=== PATIENT | female | born 1990 | race Caucasian/White ===

== ENCOUNTER → 2018-03-29 | Outpatient (CLI) | payer OTHER ==
[2018-03-29 17:35] LABS: BASO % 0.4 % (0.0-1.0); EOS # 0.1 10^3/uL (0.0-0.50); HEMATOCRIT 34.5 % (36.0-47.0); HEMOGLOBIN 11.6 g/dl (12.0-15.5); IMMATURE GRANULOCYTE % 0.3 % (0-3.0); LYMPH # 1.7 10^3/uL (1.5-6.5); LYMPH % 23.8 % (24.0-44.0); MEAN CORPUSCULAR HGB CONC 33.6 g/dl (32.0-36.5); MEAN CORPUSCULAR VOLUME 92.2 fl (80.0-96.0); MONO # 0.6 10^3/uL (0.0-0.8); MONO % 8.4 % (0.0-5.0); NEUTROPHILS # 4.8 10^3/uL (1.8-7.7); NEUTROPHILS % 66.1 % (36.0-66.0); PLATELET COUNT, AUTOMATED 222 10^3/uL (150-450); RED BLOOD COUNT 3.74 10^6/uL (4.00-5.40); RED CELL DISTRIBUTION WIDTH 12.2 % (11.5-14.5); WHITE BLOOD COUNT 7.2 10^3/uL (4.0-10.0)
[2018-03-29 18:29] LABS: ALBUMIN/GLOBULIN RATIO 0.79 (1.00-1.93); ALKALINE PHOSPHATASE 62 U/L (45-117); ALT/SGPT 41 U/L (12-78); ANION GAP 9 MEQ/L (8-16); AST/SGOT 24 U/L (7-37); BILIRUBIN,TOTAL 0.2 MG/DL (0.2-1.0); BLOOD UREA NITROGEN 12 MG/DL (7-18); CALCIUM LEVEL 8.7 MG/DL (8.5-10.1); CARBON DIOXIDE LEVEL 24 MEQ/L (21-32); CHLORIDE LEVEL 106 MEQ/L (98-107); CREATININE FOR GFR 0.38 MG/DL (0.55-1.30); GLOMERULAR FILTRATION RATE > 60.0 (>60); GLUCOSE CHALLENGE TEST 1 HOUR 113 MG/DL (LESS THAN 140); GLUCOSE, FASTING 113 MG/DL (70-100); POTASSIUM SERUM 4.1 MEQ/L (3.5-5.1); SODIUM LEVEL 139 MEQ/L (136-145); TOTAL PROTEIN 6.8 GM/DL (6.4-8.2)
[2018-03-29 20:24] LABS: CHLAMYDIA DNA AMPLIFICATION NEGATIVE (NEGATIVE)
[2018-04-01 09:16] LABS: GC DNA AMPLIFICATION NEGATIVE (NEGATIVE)
[2018-04-01 11:21] LABS: TYPE AND SCREEN PRENATAL1 1 1
[2018-04-01 12:14] LABS: RUBELLA IgG QUALITATIVE IMMUNE (IMMUNE)
[2018-04-01 12:23] LABS: HEPATITIS B SURFACE ANTIBODY POSITIVE (POSITIVE)
[2018-04-01 12:27] LABS: HBsAg Prenatal NEGATIVE (NEGATIVE)
[2018-04-01 12:44] LABS: HIV 1&2 SCREEN CENTAUR NEGATIVE (NEGATIVE)
[2018-04-01 13:16] LABS: HEPATITIS C VIRUS ABY INDEX > 11.0 INDEX (<0.8)
[2018-04-04 00:11] LABS: ALPHA 2-MACROGLOBULIN 214 mg/dL (110-276); ALT 35 IU/L (0-40); APOLIPOPROTEIN A-1 185 mg/dL (116-209); FIBROSIS SCORE 0.07 (0.00-0.21); GGT 5 IU/L (0-60); HAPTOGLOBIN <10 mg/dL (34-200); HEPATITIS A IgG TOTAL Negative (Negative); HEPATITIS B CORE ANTIBODY IGG Negative (Negative); HEPATITIS C QUANTITATION 2790 IU/mL (.); HEPATITIS C VIRUS GENOTYPE 3 (.); NECROINFLAM SCORE 0.14 (0.00-0.17); NECROINFLAMM GRADE A0-No activity (.); TOTAL BILIRUBIN 0.2 mg/dL (0.0-1.2)
[2018-04-04 08:06] LABS: HCV RNA NAA QUALITATIVE Positive (Negative)
== END ==
LOC: M LAB 15:00
DX: Z34.83 Encounter for supervision of other normal pregnancy, third trimester (principal); Z3A.31 31 weeks gestation of pregnancy
CPT/HCPCS: 84460

== ENCOUNTER 2018-04-28 09:03 | Emergency (ER) | payer OTHER, MEDICAID | END 2018-04-28 11:40 | disposition home or self-care (01) | LOC: M ED 09:03 | DX: O99.89 Other specified diseases and conditions complicating pregnancy, childbirth and the puerperium (principal); Z76.0 Encounter for issue of repeat prescription; Z79.899 Other long term (current) drug therapy; Z91.040 Latex allergy status; Z3A.34 34 weeks gestation of pregnancy | CPT/HCPCS: 99283 ==

== ENCOUNTER → 2018-05-01 | Outpatient (CLI) | payer OTHER ==
[2018-05-01 18:26] LABS: BASO % 0.3 % (0.0-1.0); EOS # 0.1 10^3/uL (0.0-0.50); HEMATOCRIT 35.2 % (36.0-47.0); IMMATURE GRANULOCYTE % 0.3 % (0-3.0); LYMPH # 1.9 10^3/uL (1.5-6.5); LYMPH % 27.2 % (24.0-44.0); MEAN CORPUSCULAR HGB CONC 34.1 g/dl (32.0-36.5); MONO # 0.6 10^3/uL (0.0-0.8); MONO % 9.3 % (0.0-5.0); NEUTROPHILS # 4.2 10^3/uL (1.8-7.7); NEUTROPHILS % 61.9 % (36.0-66.0); PLATELET COUNT, AUTOMATED 171 10^3/uL (150-450); RED BLOOD COUNT 3.87 10^6/uL (4.00-5.40); RED CELL DISTRIBUTION WIDTH 12.1 % (11.5-14.5); WHITE BLOOD COUNT 6.8 10^3/uL (4.0-10.0)
[2018-05-01 18:52] LABS: ALBUMIN 2.8 GM/DL (3.2-5.2); ALBUMIN/GLOBULIN RATIO 0.72 (1.00-1.93); ALKALINE PHOSPHATASE 95 U/L (45-117); ALT/SGPT 51 U/L (12-78); AST/SGOT 32 U/L (7-37); BILIRUBIN,DIRECT < 0.1 MG/DL (0.0-0.2); BILIRUBIN,TOTAL 0.3 MG/DL (0.2-1.0); TOTAL PROTEIN 6.7 GM/DL (6.4-8.2)
== END ==
LOC: M LAB 17:11
DX: B19.20 Unspecified viral hepatitis C without hepatic coma (principal)
CPT/HCPCS: 80076

== ENCOUNTER → 2018-05-17 | Outpatient (REF) | payer OTHER | LOC: M LAB REF 16:58 | DX: Z34.83 Encounter for supervision of other normal pregnancy, third trimester (principal) ==

== ENCOUNTER 2018-05-31 18:43 | Outpatient (CLI) | payer OTHER ==
[2018-05-31] MEDS: metroNIDAZOLE (FLAGYL) 500 MG TAB PO (19:52)
== END 2018-05-31 19:55 | disposition home or self-care (01) ==
LOC: M LDO 18:43
DX: O34.63 Maternal care for abnormality of vagina, third trimester (principal); O23.593 Infection of other part of genital tract in pregnancy, third trimester; O47.1 False labor at or after 37 completed weeks of gestation; Z3A.39 39 weeks gestation of pregnancy
CPT/HCPCS: 59025

== ENCOUNTER 2018-06-09 15:05 | Inpatient (IN) | payer OTHER ==
[2018-06-09] MEDS: BUPRENORPHINE PO (20:05)
[2018-06-09 20:34] LABS: HEMATOCRIT 35.4 % (36.0-47.0); MEAN CORPUSCULAR HEMOGLOBIN 30.7 pg (27.0-33.0); MEAN CORPUSCULAR HGB CONC 33.9 g/dl (32.0-36.5); MEAN CORPUSCULAR VOLUME 90.5 fl (80.0-96.0); PLATELET COUNT, AUTOMATED 225 10^3/uL (150-450); RED BLOOD COUNT 3.91 10^6/uL (4.00-5.40); RED CELL DISTRIBUTION WIDTH 12.2 % (11.5-14.5); WHITE BLOOD COUNT 6.5 10^3/uL (4.0-10.0)
[2018-06-09] MEDS: miSOPROStol 50 MCG 1/2 TAB (S0191) PO (20:53)
[2018-06-09] MEDS: LR 1,000 ML IV (20:55)
[2018-06-09] MEDS: PENICILLIN G POTASSIUM IV 5 MU in D5W MINI-BAG PLUS 100 ML IV (21:08)
[2018-06-09 21:30] LABS: AMPHETAMINES URINE REFLEX NEGATIVE (NEGATIVE); BARBITURATES URINE REFLEX NEGATIVE (NEGATIVE); BENZODIAZEPINES URINE REFLEX NEGATIVE (NEGATIVE); CANNABINOIDS URINE REFLEX NEGATIVE (NEGATIVE); COCAINE METABOLITE URINE REFLE NEGATIVE (NEGATIVE); METHADONE URINE REFLEX NEGATIVE (NEGATIVE); OPIATES URINE REFLEX NEGATIVE (NEGATIVE); PHENCYCLIDINE URINE REFLEX NEGATIVE (NEGATIVE)
[2018-06-10] MEDS: OXYTOCIN DRIP 30 UNITS in APPROPRIATE DILUENT 1 EA IV (01:00)
[2018-06-10] MEDS: PENICILLIN G POTASSIUM IV 2.5 MU in APPROPRIATE DILUENT 1 EA IV ×3 (01:17→09:04)
[2018-06-10] MEDS: LR 1,000 ML IV ×3 (04:02→10:11)
[2018-06-10] MEDS ORDERED: FENTANYL 2MCG/ML ROPIVACAINE 0.2% IN 0.9% NACL 200ML IVBAG As Ordered (07:21)
[2018-06-10] MEDS: FENTANYL/ROPIVACAINE/NACL BAG 200 ML EPIDURAL (07:58)
[2018-06-10] MEDS: BUPRENORPHINE PO ×2 (08:07→19:56)
[2018-06-10] MEDS ORDERED: NALOXONE INJ 0.4 MG/1 ML VIAL (J2310) IV (08:30)
[2018-06-10] MEDS ORDERED: LACTATED RINGER'S 1000 ML IV (08:30)
[2018-06-10] MEDS ORDERED: ePHEDrine SULFATE 25 MG/5 ML(5MG/ML) SYRINGE IV (08:30)
[2018-06-10] MEDS ORDERED: REFRIGERATOR IV KEYS XX (08:30)
[2018-06-10] MEDS ORDERED: EPIDURAL/PCA KEYS XX (08:30)
[2018-06-10] MEDS ORDERED: ONDANSETRON 4MG/2ML VIAL (J2405) IV (08:30)
[2018-06-10] MEDS ORDERED: EPIDURAL COMMENT XX (08:30)
[2018-06-10] MEDS ORDERED: diphenhydrAMINE INJ 50MG/ML VIAL (J1200) IV (08:30)
[2018-06-10] MEDS: PRENATAL VITAMINS CHEWABLE TABLET PO (09:00)
[2018-06-10 11:57] LABS: CORD GAS ABE A -7.2; CORD GAS HCO3 A 22.7 MEQ/L; CORD GAS O2 SAT A 56.7 %; CORD GAS PCO2 A 64.3 mmHg; CORD GAS PH A 7.166 UNITS; CORD GAS PO2 A 32.3 mmHg; CORD GAS SBC A 17.7 MEQ/L; CORD GAS TCO2 A 24.7 MEQ/L
[2018-06-10 11:59] LABS: CORD GAS ABE V -9.7; CORD GAS HCO3 V 17.2 MEQ/L; CORD GAS O2 SAT V 51.2 %; CORD GAS PCO2 V 41.1 mmHg; CORD GAS PH V 7.239 UNITS; CORD GAS PO2 V 27.1 mmHg; CORD GAS SBC V 15.9 MEQ/L; CORD GAS TCO2 V 18.4 MEQ/L
[2018-06-10] MEDS ORDERED: ACETAMINOPHEN 500 MG TAB PO (12:30)
[2018-06-10] MEDS ORDERED: RHOGAM 300 MCG (1500 IU) INJ (J2790) IM (12:30)
[2018-06-10] MEDS ORDERED: MOM 30ML SUSPENSION UDC PO (12:30)
[2018-06-10] MEDS ORDERED: IBUPROFEN 800 MG TAB PO (12:30)
[2018-06-10] MEDS ORDERED: METHYLERGONOVINE MALEATE 0.2 MG TAB PO (12:30)
[2018-06-10] MEDS ORDERED: MEASLES,MUMPS,RUBELLA VACCINE INJ (MMR-II) (90707) SC (12:30)
[2018-06-10] MEDS ORDERED: DIBUCAINE 1% OINTMENT 30GM TOP (12:30)
[2018-06-10] MEDS: NICOTINE 14 MG/24 HR TRANSDERMAL TD (16:16)
[2018-06-10] MEDS: DOCUSATE SODIUM 100 MG CAP PO (21:00)
[2018-06-11] MEDS ORDERED: BUPRENORPHINE PO (06:00)
[2018-06-11] MEDS: DOCUSATE SODIUM 100 MG CAP PO ×2 (07:01→20:19)
[2018-06-11] MEDS: PRENATAL VITAMINS CHEWABLE TABLET PO (08:31)
[2018-06-11] MEDS: NICOTINE 14 MG/24 HR TRANSDERMAL TD (08:33)
[2018-06-11] MEDS: METAMUCIL (PSYLLIUM) PACKET PO ×2 (08:34→20:19)
[2018-06-11] MEDS: BUPRENORPHINE PO ×2 (20:18)
[2018-06-12] MEDS: BUPRENORPHINE PO (05:40)
[2018-06-12] MEDS: METAMUCIL (PSYLLIUM) PACKET PO (09:00)
[2018-06-12] MEDS: NICOTINE 14 MG/24 HR TRANSDERMAL TD (09:16)
[2018-06-12] MEDS: PRENATAL VITAMINS CHEWABLE TABLET PO (09:16)
[2018-06-12] MEDS: DOCUSATE SODIUM 100 MG CAP PO (09:16)
== END 2018-06-12 14:27 | disposition home or self-care (01) | DRG 560 ==
LOC: M LDO 15:05 → M OBS 06-10 14:15 → M LDI 19:10
PROVIDERS: Advanced Practice Midwife
PROC: 10E0XZZ Delivery of Products of Conception, External Approach (ICD-10-PCS; principal; 2018-06-10)
DX: O48.0 Post-term pregnancy (principal); O99.321 Drug use complicating pregnancy, first trimester; O99.322 Drug use complicating pregnancy, second trimester; Z37.0 Single live birth; Z3A.40 40 weeks gestation of pregnancy; O09.31 Supervision of pregnancy with insufficient antenatal care, first trimester; O09.32 Supervision of pregnancy with insufficient antenatal care, second trimester; F14.10 Cocaine abuse, uncomplicated; O99.820 Streptococcus B carrier state complicating pregnancy; O32.6XX0 Maternal care for compound presentation, not applicable or unspecified

== ENCOUNTER → 2018-07-25 | Outpatient (REF) | payer OTHER, MEDICAID ==
[~2018-07-25] MED LIST: COLA100C5 PO; IBUP-1114 PO; NICO14DI24 TD; PREN200C PO; SUBO4MIS SL
[2018-07-25 11:41] LABS: BASO % 0.5 % (0.0-1.0); EOS # 0.1 10^3/uL (0.0-0.50); EOS % 2.2 % (0.0-3.0); HEMATOCRIT 37.3 % (36.0-47.0); HEMOGLOBIN 12.5 g/dl (12.0-15.5); LYMPH # 1.9 10^3/uL (1.5-6.5); LYMPH % 29.8 % (24.0-44.0); MEAN CORPUSCULAR HEMOGLOBIN 30.3 pg (27.0-33.0); MEAN CORPUSCULAR HGB CONC 33.5 g/dl (32.0-36.5); MEAN CORPUSCULAR VOLUME 90.3 fl (80.0-96.0); MONO # 0.6 10^3/uL (0.0-0.8); NEUTROPHILS # 3.8 10^3/uL (1.8-7.7); NEUTROPHILS % 58.3 % (36.0-66.0); PLATELET COUNT, AUTOMATED 296 10^3/uL (150-450); RED BLOOD COUNT 4.13 10^6/uL (4.00-5.40); WHITE BLOOD COUNT 6.4 10^3/uL (4.0-10.0)
[2018-07-25 12:21] LABS: ALBUMIN 3.5 GM/DL (3.2-5.2); ALT/SGPT 197 U/L (12-78); BILIRUBIN,TOTAL 0.3 MG/DL (0.2-1.0); BLOOD UREA NITROGEN 12 MG/DL (7-18); CALCIUM LEVEL 9.5 MG/DL (8.5-10.1); CARBON DIOXIDE LEVEL 26 MEQ/L (21-32); CHLORIDE LEVEL 104 MEQ/L (98-107); CREATININE FOR GFR 0.45 MG/DL (0.55-1.30); GLOMERULAR FILTRATION RATE > 60.0 (>60); GLUCOSE, FASTING 87 MG/DL (70-100); POTASSIUM SERUM 4.7 MEQ/L (3.5-5.1); SODIUM LEVEL 141 MEQ/L (136-145); TOTAL PROTEIN 7.2 GM/DL (6.4-8.2)
[2018-07-30 15:26] LABS: HEPATITIS C QUANTITATION 643430 IU/mL (.)
== END ==
LOC: M SFHCPLAZ 10:45
PROVIDERS: ATTEND Internal Medicine Infectious Disease
DX: B18.2 Chronic viral hepatitis C (principal)

== ENCOUNTER → 2018-09-25 | Outpatient (REF) | payer OTHER | LOC: M LAB REF 17:45 | PROVIDERS: ATTEND Physician Assistant | DX: J02.9 Acute pharyngitis, unspecified (principal) ==

== ENCOUNTER → 2018-10-01 | Outpatient (REF) | payer OTHER | LOC: M LAB REF 14:49 | PROVIDERS: ATTEND Advanced Practice Midwife | DX: Z12.4 Encounter for screening for malignant neoplasm of cervix (principal); R87.612 Low grade squamous intraepithelial lesion on cytologic smear of cervix (LGSIL) ==

== ENCOUNTER → 2018-10-17 | Outpatient (REF) | payer OTHER ==
[2018-10-17 17:45] LABS: ALBUMIN 3.8 GM/DL (3.2-5.2); ALT/SGPT 32 U/L (12-78); BILIRUBIN,DIRECT < 0.1 MG/DL (0.0-0.2); BILIRUBIN,TOTAL 0.3 MG/DL (0.2-1.0); TOTAL PROTEIN 8.3 GM/DL (6.4-8.2)
== END ==
LOC: M SFHCPLAZ 13:18
PROVIDERS: ATTEND Internal Medicine Infectious Disease
DX: B18.2 Chronic viral hepatitis C (principal)

== ENCOUNTER → 2018-11-05 | Outpatient (REF) | payer OTHER | LOC: M LAB REF 13:23 | PROVIDERS: ATTEND Obstetrics & Gynecology | DX: R87.612 Low grade squamous intraepithelial lesion on cytologic smear of cervix (LGSIL) (principal) ==

== ENCOUNTER → 2019-02-18 | Outpatient (REF) | payer OTHER ==
[2019-02-18 16:43] LABS: ALBUMIN 3.5 GM/DL (3.2-5.2); ALT/SGPT 21 U/L (12-78); BILIRUBIN,DIRECT < 0.1 MG/DL (0.0-0.2); BILIRUBIN,TOTAL 0.3 MG/DL (0.2-1.0); TOTAL PROTEIN 7.3 GM/DL (6.4-8.2)
[2019-02-21 14:17] LABS: HEPATITIS C QUANTITATION HCV Not Detected IU/mL (.)
== END ==
LOC: M SFHCPLAZ 14:16
PROVIDERS: ATTEND Internal Medicine Infectious Disease
DX: B18.2 Chronic viral hepatitis C (principal)

== ENCOUNTER 2019-07-08 13:09 | Emergency (ER) | payer OTHER ==
[~2019-07-08] VITALS: Ht 162.6 cm; Wt 98.4 kg
[2019-07-08] MEDS ORDERED: NEXP1IMP SC (13:15)
[2019-07-08 13:57] LABS: BASO % 0.3 % (0.0-1.0); EOS % 0.1 % (0.0-3.0); HEMOGLOBIN 14.8 g/dl (12.0-15.5); LYMPH # 0.9 10^3/uL (1.5-5.0); LYMPH % 5.7 % (24.0-44.0); MEAN CORPUSCULAR HEMOGLOBIN 30.4 pg (27.0-33.0); MEAN CORPUSCULAR HGB CONC 33.6 g/dl (32.0-36.5); MEAN CORPUSCULAR VOLUME 90.3 fl (80.0-96.0); MONO # 0.8 10^3/uL (0.0-0.8); MONO % 5.1 % (0.0-5.0); NEUTROPHILS # 13.2 10^3/uL (1.5-8.5); NEUTROPHILS % 88.4 % (36.0-66.0); PLATELET COUNT, AUTOMATED 307 10^3/uL (150-450); RED BLOOD COUNT 4.87 10^6/uL (4.00-5.40)
[2019-07-08 14:24] LABS: ALBUMIN 3.8 GM/DL (3.2-5.2); ALT/SGPT 17 U/L (12-78); BILIRUBIN,DIRECT 0.2 MG/DL (0.0-0.2); BILIRUBIN,TOTAL 0.9 MG/DL (0.2-1.0); BLOOD UREA NITROGEN 10 MG/DL (7-18); CALCIUM LEVEL 8.9 MG/DL (8.5-10.1); CARBON DIOXIDE LEVEL 21 MEQ/L (21-32); CHLORIDE LEVEL 106 MEQ/L (98-107); CREATININE FOR GFR 0.56 MG/DL (0.55-1.30); GLOMERULAR FILTRATION RATE > 60.0 (>60); GLUCOSE, FASTING 87 MG/DL (70-100); HCG, SERUM QUANTITATIVE < 1.0 MIU/ML; LIPASE 46 U/L (73-393); POTASSIUM SERUM 4.2 MEQ/L (3.5-5.1); SODIUM LEVEL 137 MEQ/L (136-145); TOTAL PROTEIN 7.5 GM/DL (6.4-8.2)
[2019-07-08] MEDS ORDERED: NS 1,000 ML IV ONE (15:30)
[2019-07-08] MEDS ORDERED: ISOVUE-370 76% 100ML VIAL (Q9967) As Ordered ONE (15:34)
--- NOTE | 2019-07-08 16:02 | REP ---
Clinical: Abdominal pain. Technique: Axial contrast enhanced images from the lung bases to the pubic symphysis using 100 ml Isovue 370 intravenous contrast material with coronal and sagittal re-formations. Findings: Mucosal thickening and enhancement to the fluid-filled small bowel is consistent with enteritis. Small amount of free fluid in the pelvis noted. Differential diagnosis includes inflammatory bowel disease. The appendix and large bowel appears normal. No free air. No evidence for bowel obstruction. Liver, spleen, pancreas, gallbladder, bilateral adrenal glands and kidneys are normal. Small fat containing periumbilical hernia and supraumbilical hernia is noted. Pelvis demonstrates normal bladder and age-appropriate uterus/adnexa. Abdominal aorta and vasculature normal. Musculoskeletal structures are intact. Lung bases are clear. Impression: Infectious/inflammatory enteritis. Differential diagnosis includes inflammatory bowel disease. Normal appendix and colon. No evidence for bowel obstruction or perforation. Electronically Signed by Telly Jean MD 07/08/2019 03:53 P
[2019-07-08] MEDS ORDERED: FLAG500T PO (16:37)
[2019-07-08] MEDS ORDERED: CIPR-249 PO (16:37)
[2019-07-08] MEDS ORDERED: metroNIDAZOLE (FLAGYL) 500 MG TAB PO ONE (16:45)
[2019-07-08] MEDS ORDERED: CIPROFLOXACIN 500 MG TAB PO ONE (16:45)
[2019-07-08 16:46] VITALS: BP 118/67
== END 2019-07-08 16:48 | disposition home or self-care (01) ==
LOC: M ED 13:09
DX: K52.9 Noninfective gastroenteritis and colitis, unspecified (principal); F17.210 Nicotine dependence, cigarettes, uncomplicated; Z91.040 Latex allergy status; Z79.899 Other long term (current) drug therapy
CPT/HCPCS: 74177; 80048; 80076; 81001; 83690; 84702; 85025; 96360; 99284; Q9967

== ENCOUNTER → 2019-07-18 | Outpatient (REF) | payer OTHER, MEDICAID ==
[~2019-07-18] MED LIST changes: +CIPR-249 PO; +FLAG500T PO; +NEXP1IMP SC
[2019-07-18 12:00] LABS: BASO # 0.1 10^3/uL (0.0-0.2); BASO % 0.5 % (0.0-1.0); EOS # 0.1 10^3/uL (0.0-0.5); EOS % 1.1 % (0.0-3.0); HEMOGLOBIN 13.4 g/dl (12.0-15.5); LYMPH # 1.9 10^3/uL (1.5-5.0); LYMPH % 15.7 % (24.0-44.0); MEAN CORPUSCULAR HEMOGLOBIN 30.7 pg (27.0-33.0); MEAN CORPUSCULAR HGB CONC 33.5 g/dl (32.0-36.5); MEAN CORPUSCULAR VOLUME 91.5 fl (80.0-96.0); MONO # 0.9 10^3/uL (0.0-0.8); MONO % 7.1 % (0.0-5.0); NEUTROPHILS # 9.2 10^3/uL (1.5-8.5); PLATELET COUNT, AUTOMATED 372 10^3/uL (150-450); RED BLOOD COUNT 4.37 10^6/uL (4.00-5.40); WHITE BLOOD COUNT 12.3 10^3/uL (4.0-10.0)
[2019-07-18 12:28] LABS: ALBUMIN 4.1 GM/DL (3.2-5.2); ALT/SGPT 21 U/L (12-78); BILIRUBIN,TOTAL 0.5 MG/DL (0.2-1.0); BLOOD UREA NITROGEN 10 MG/DL (7-18); CALCIUM LEVEL 9.1 MG/DL (8.5-10.1); CARBON DIOXIDE LEVEL 24 MEQ/L (21-32); CHLORIDE LEVEL 110 MEQ/L (98-107); CHOLESTEROL LEVEL 144 MG/DL (<200); CHOLESTEROL RISK RATIO 2.618 (<5); CREATININE FOR GFR 0.62 MG/DL (0.55-1.30); GLOMERULAR FILTRATION RATE > 60.0 (>60); GLUCOSE, FASTING 95 MG/DL (70-100); HDL CHOLESTEROL 55 MG/DL (>40); LDL CHOLESTEROL 79 MG/DL (<100); NON-HDL-C 89 MG/DL; POTASSIUM SERUM 4.1 MEQ/L (3.5-5.1); SODIUM LEVEL 141 MEQ/L (136-145); THYROID STIMULATING HORMONE 0.601 uIU/ML (0.358-3.740); TOTAL PROTEIN 7.2 GM/DL (6.4-8.2); TRIGLYCERIDES LEVEL 50 MG/DL (<150)
[2019-07-18 12:29] LABS: HEMOGLOBIN A1c 4.7 %
[2019-07-18 16:17] LABS: TOTAL 25(OH) VITAMIN D 21.2 NG/ML (30.0-100.0)
== END ==
LOC: M LAB REF 11:07
PROVIDERS: ATTEND Nurse Practitioner Family
DX: Z13.9 Encounter for screening, unspecified (principal)

== ENCOUNTER 2020-05-01 10:29 | Emergency (ER) | payer MEDICAID, OTHER, SELFPAY ==
[2020-05-01] MEDS ORDERED: NS 1,000 ML IV ONE (10:45)
[2020-05-01 11:14] LABS: BASO % 0.4 % (0.0-1.0); EOS # 0.1 10^3/uL (0.0-0.5); EOS % 1.2 % (0.0-3.0); HEMATOCRIT 35.3 % (36.0-47.0); LYMPH # 2.6 10^3/uL (1.5-5.0); LYMPH % 27.9 % (24.0-44.0); MEAN CORPUSCULAR HEMOGLOBIN 29.4 pg (27.0-33.0); MEAN CORPUSCULAR VOLUME 86.5 fl (80.0-96.0); MONO % 10.7 % (0.0-5.0); NEUTROPHILS # 5.6 10^3/uL (1.5-8.5); NEUTROPHILS % 59.5 % (36.0-66.0); PLATELET COUNT, AUTOMATED 353 10^3/uL (150-450); RED BLOOD COUNT 4.08 10^6/uL (4.00-5.40); WHITE BLOOD COUNT 9.4 10^3/uL (4.0-10.0)
[2020-05-01] MEDS ORDERED: ONDANSETRON 4MG/2ML VIAL IV ONE (11:15)
[2020-05-01] MEDS: MORPHINE 2 MG/ML 1ML VIAL (J2270) IV PRN ×2 (11:16→11:44)
[2020-05-01 11:42] LABS: ALBUMIN 3.6 GM/DL (3.2-5.2); ALT/SGPT 121 U/L (12-78); BILIRUBIN,DIRECT 0.3 MG/DL (0.0-0.2); BILIRUBIN,TOTAL 0.9 MG/DL (0.2-1.0); LIPASE 32 U/L (73-393); TOTAL PROTEIN 7.3 GM/DL (6.4-8.2)
[2020-05-01] MEDS ORDERED: ISOVUE-370 76% 100ML VIAL As Ordered ONE (11:55)
--- NOTE | 2020-05-01 12:27 | REP ---
INDICATION: rlq pain ro appy. COMPARISON: None TECHNIQUE: Axial contrast-enhanced images from the lung bases to the pubic symphysis using 100 cc Isovue 370 intravenous contrast material. Coronal and sagittal reformations obtained.. This CT examination was performed using the following dose reduction techniques: Automated exposure control, adjustment of mA and/or kv according to the patient's size, and the use of iterative reconstruction technique. FINDINGS: Liver, spleen, pancreas, gallbladder, bilateral adrenal glands and kidneys are normal. The enteric system including stomach, small, and large bowel appears normal. No evidence for obstruction or acute inflammatory process. Normal terminal ileum and appendix are identified in the right lower quadrant. Pelvis demonstrates normal bladder and age-appropriate uterus/adnexa. Subtle heterogeneous enhancement to the uterus should be correlated with physical examination to exclude the possibility of inflammatory process. No ascites. No free air. No intraperitoneal or retroperitoneal adenopathy. Abdominal aorta and vasculature appear normal. Musculoskeletal structures are intact and without acute osseous abnormality. IMPRESSION: 1. No evidence for acute appendicitis. 2. Mildly prominent heterogeneous enhancement to the uterus should be correlated with physical examination and pelvic ultrasound if necessary. A mild inflammatory process cannot be excluded. 3. No ascites. No adenopathy. No focal inflammatory stranding. <Electronically signed by Telly Jean > 05/01/20 [id number]
--- NOTE | 2020-05-01 13:13 | REP ---
INDICATION: rlq pain ro torsion COMPARISON: None. TECHNIQUE: Transabdominal pelvic ultrasound followed by transvaginal examination for better evaluation of the endometrium and adnexa with color Doppler evaluation of the ovaries. FINDINGS: Bladder is under distended and measures 4.8 x 2.2 x 3.8 cm. Normal anteverted uterus measures 7.4 x 3.1 x 4.9 cm. The endometrial complex measures 2.0 mm thickness. Bilateral ovaries are normal in appearance and vascularity without evidence for torsion. Right ovary measures 3.5 x 2.4 x 1.8 cm; R I = 0.42. Left ovary measures 3.2 x 2.1 x 2.2 cm; R I = 0.42. No pelvic fluid or adnexal mass lesion. IMPRESSION: Normal pelvic ultrasound. <Electronically signed by Telly Jean > 05/01/20 [id number]
[2020-05-01 13:20] LABS: CHLAMYDIA DNA AMPLIFICATION NEGATIVE (NEGATIVE); GC DNA AMPLIFICATION POSITIVE (NEGATIVE)
[2020-05-01] MEDS ORDERED: DOXYCYCLINE HYCLATE 100MG TABLET PO ONE (14:15)
[2020-05-01] MEDS ORDERED: cefTRIAXone SOD 1 GM in D5W MINI-BAG PLUS 50 ML IV ONE (14:15)
[2020-05-01] MEDS ORDERED: metroNIDAZOLE (FLAGYL) 500MG TABLET PO ONE (14:15)
[2020-05-01] MEDS ORDERED: NORCO, ANEXSIA 5/325MG TABLET (HYDROcodone/ACETAMINOPHEN) PO ONE (15:15)
[2020-05-01 15:16] VITALS: BP 128/67
[2020-05-01] MEDS ORDERED: FLAG500T PO (15:20)
[2020-05-01] MEDS ORDERED: DOXY100C37 PO (15:20)
[2020-05-01] MEDS ORDERED: ZOFR4TAB16 PO (15:21)
[2020-05-01] MEDS ORDERED: NORCO 5/325MG TABLET (BULK FOR ED) PO ONE (15:30)
[2020-05-03] MEDS ORDERED: KEFL500C17 PO (10:37)
[2020-05-03 12:05] LABS: HEPATITIS B SURFACE ANTIGEN NEGATIVE (NEGATIVE)
[2020-05-03 12:33] LABS: HEPATITIS B CORE ANTIBODY IGM NEGATIVE (NEGATIVE)
[2020-05-03 12:35] LABS: HEPATITIS A ANTIBODY IGM NEGATIVE (NEGATIVE)
[2020-05-03 12:44] LABS: HEPATITIS C VIRUS ABY INDEX > 11.0 INDEX (<0.8)
== END 2020-05-01 15:44 | disposition home or self-care (01) ==
LOC: EDSEX 10:29 → M ED 10:29 → EDBD 10:29 → M ED 15:44
DX: N73.9 Female pelvic inflammatory disease, unspecified (principal); F11.10 Opioid abuse, uncomplicated; Z91.040 Latex allergy status; F17.200 Nicotine dependence, unspecified, uncomplicated; Z79.899 Other long term (current) drug therapy
CPT/HCPCS: 74177; 76830; 76856; 80047; 80076; 81001; 83605; 83690; 84702; 85025; 86705; 86709; 86803; 87088; 87186; 87210; 87340; 87491; 87521; 87591; 93041; 93976; 96361; 96365; 96375; 99284; J0696; J2270; J2405; Q9967

== ENCOUNTER 2023-02-11 16:12 | Emergency (ER) | payer OTHER, SELFPAY ==
[~2023-02-11] VITALS: Ht 157.5 cm; Wt 76.2 kg
[~2023-02-11 16:12] MED LIST changes: +DOXY-443 PO; +ETON68IM SC; +KEFL500C17 PO; -NEXP1IMP SC; +ZOFR4TAB16 PO
[2023-02-11 18:55] LABS: BASO # 0.1 10^3/uL (0.0-0.2); BASO % 0.5 % (0.0-1.0); EOS # 0.3 10^3/uL (0.0-0.5); EOS % 2.8 % (0.0-3.0); HEMATOCRIT 41.7 % (36.0-47.0); LYMPH # 2.4 10^3/uL (1.5-5.0); LYMPH % 24.6 % (24.0-44.0); MEAN CORPUSCULAR HEMOGLOBIN 29.4 pg (27.0-33.0); MEAN CORPUSCULAR HGB CONC 33.6 g/dl (32.0-36.5); MEAN CORPUSCULAR VOLUME 87.6 fl (80.0-96.0); MONO # 0.7 10^3/uL (0.0-0.8); MONO % 7.5 % (2.0-8.0); NEUTROPHILS # 6.4 10^3/uL (1.5-8.5); NEUTROPHILS % 64.2 % (36.0-66.0); PLATELET COUNT, AUTOMATED 292 10^3/uL (150-450); RED BLOOD COUNT 4.76 10^6/uL (4.00-5.40); WHITE BLOOD COUNT 9.9 10^3/uL (4.0-10.0)
[2023-02-11 19:25] LABS: ERYTHROCYTE SEDIMENTATION RATE 11 mm/hr (0-20)
[2023-02-11 20:01] LABS: BLOOD UREA NITROGEN 10 MG/DL (9-23); CALCIUM LEVEL 8.7 MG/DL (8.5-10.1); CARBON DIOXIDE LEVEL 28 MMOL/L (20-31); CHLORIDE LEVEL 106 MMOL/L (98-107); CREATININE FOR GFR 0.53 MG/DL (0.55-1.30); GLOMERULAR FILTRATION RATE > 60.0 (>60); GLUCOSE, FASTING 65 MG/DL (60-100); POTASSIUM SERUM 4.4 MMOL/L (3.5-5.1); SODIUM LEVEL 140 MMOL/L (136-145)
[2023-02-11] MEDS ORDERED: DALBAVANCIN 1,500 MG in D5W 250 ML IV ONE (21:35)
[2023-02-11 23:38] VITALS: BP 154/70; TEMP 98.9; O2SAT 98
== END 2023-02-11 23:41 | disposition home or self-care (01) ==
LOC: M ED 16:12
DX: L03.113 Cellulitis of right upper limb (principal); F19.10 Other psychoactive substance abuse, uncomplicated; Z91.040 Latex allergy status
CPT/HCPCS: 80048; 85025; 85652; 86140; 87040; 93971; 96365; 99284; J0875